=== PATIENT | female | born 1965 | race Caucasian/White ===

== ENCOUNTER 2023-01-22 23:53 | Emergency (ER) | payer MEDICARE, MEDICAID ==
[~2023-01-22] VITALS: Ht 167.6 cm; Wt 73.0 kg
[2023-01-23 00:01] VITALS: TEMP 98.2; O2SAT 99
[2023-01-23] MEDS ORDERED: KETOROLAC 60MG/2ML VIAL IM ONE (01:00)
[2023-01-23] MEDS ORDERED: DIPHENHYDRAMINE 25MG CAPSULE PO ONE (01:00)
[2023-01-23] MEDS ORDERED: HYDROCODONE/ACETAMINOPHEN 5/325MG TABLET PO ONE (01:30)
[2023-01-23 01:36] VITALS: BP 142/58; PULSE 56; RESP 16
== END 2023-01-23 01:44 | disposition left against medical advice (07) ==
LOC: ER 23:53
DX: M79.10 Myalgia, unspecified site (principal); M54.2 Cervicalgia; Z88.0 Allergy status to penicillin; Z88.5 Allergy status to narcotic agent
CPT/HCPCS: 99283; Q0163; J1885